=== PATIENT | female | born 1995 | race Caucasian/White ===

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

== ENCOUNTER 2019-08-22 20:05 | Emergency (ER) | payer BC, OTHER ==
--- NOTE | 2019-08-22 20:08 | ERPHSYRPT ---
- History of Present Illness Time Seen by Provider: 08/22/19 20:08 Historian: patient Exam Limitations: no limitations Physician History: This is a 24-year-old overweight white female with history of hypertension and elevated cholesterol who presents with a 2-day history of worsening dizziness and associated vomiting. Patient symptoms began prior to this evaluation. The dizziness was intermittent. However, this morning the patient had the dizziness with sinus pressure as well as 3 episodes of vomiting. Denies chest pain, denies shortness of breath, denies abdominal pain. She has some pressure in both of her ears but is mild. Patient states she is never had this before. Timing/Duration: day(s) (2) Activities at Onset: none Quality: pressure Abdominal Pain Onset Location: other (Nominal pain) Pain Radiation: no radiation Severity of Pain-Max: none Severity of Pain-Current: none Associated Symptoms: nausea, vomiting Previous symptoms: no prior history Allergies/Adverse Reactions: amoxicillin [Amoxicillin] Allergy (Verified 08/22/19 20:46) poison emily extract [Poison Emily Extract] Allergy (Verified 08/22/19 20:46) benazepril Adverse Reaction (Verified 08/22/19 20:46) Home Medications: Amlodipine Besylate 5 mg PO DAILY 08/22/19 [History] Atorvastatin Calcium [Lipitor] 100 mg PO DAILY 08/22/19 [History] Fenofibrate 160 mg PO DAILY 08/22/19 [History] Semaglutide [Ozempic] 1 ml SQ WEEKLY 08/22/19 [History] Hx Tetanus, Diphtheria Vaccination/Date Given: Yes Hx Influenza Vaccination/Date Given: No Hx Pneumococcal Vaccination/Date Given: No Travel Risk - International Travel Have you traveled outside of the country in past 3 weeks: No Have you or anyone close to you been diagnosed with or: No Do your reside in a community with a known COVID-19 case?: Yes If Yes where:: [facility] - Coronavirus Screening Has patient experienced Coronavirus symptoms: No - Review of Systems Constitutional: No Symptoms Eyes: No Symptoms Ears, Nose, & Throat: Ear Pain (Mild bilateral), Other (Frontal sinus pressure) Respiratory: No Symptoms Cardiac: No Symptoms Abdominal/Gastrointestinal: No Symptoms Genitourinary Symptoms: No Symptoms Musculoskeletal: No Symptoms Skin: No Symptoms Neurological: No Symptoms Psychological: No Symptoms Endocrine: No Symptoms Hematologic/Lymphatic: No Symptoms Immunological/Allergic: No Symptoms All Other Systems: Reviewed and Negative - Past Medical History Pertinent Past Medical History: Yes Neurological History: No Pertinent History ENT History: No Pertinent History Cardiac History: Hypertension Respiratory History: No Pertinent History Endocrine Medical History: Hyperthyroidism Musculoskeletal History: No Pertinent History GI Medical History: No Pertinent History History: No Pertinent History Psycho-Social History: Panic Disorder Female Reproductive Disorders: No Pertinent History - Past Surgical History Past Surgical History: No Neuro Surgical History: No Pertinent History Cardiac: No Pertinent History Respiratory: No Pertinent History Gastrointestinal: No Pertinent History Genitourinary: No Pertinent History Musculoskeletal: No Pertinent History Female Surgical History: No Pertinent History - Social History Smoking Status: Never smoker Exposure to second hand smoke: No Alcohol Use: None Drug Use: none Patient Lives Alone: No Significant Family History: no pertinent family hx, heart disease, hypertension - Nursing Vital Signs Nursing Vital Signs: Initial Vital Signs Temperature 98.9 F 08/22/19 20:47 Pulse Rate 114 H 08/22/19 20:47 Respiratory Rate 14 08/22/19 20:47 Blood Pressure 155/92 08/22/19 20:47 O2 Sat by Pulse Oximetry 97 08/22/19 20:47 Pain Scale Pain Intensity 4 - Physical Exam General Appearance: mild distress, alert, anxiety, obese Eye Exam: PERRL/EOMI, eyes nml inspection Ears, Nose, Throat Exam: normal ENT inspection, TMs normal, pharynx normal, moist mucous membranes Neck Exam: normal inspection, non-tender, supple, full range of motion Respiratory Exam: normal breath sounds, lungs clear, airway intact, No chest tenderness, No respiratory distress Cardiovascular Exam: regular rate/rhythm, normal heart sounds, normal peripheral pulses Gastrointestinal/Abdomen Exam: soft, normal bowel sounds, No tenderness Pelvic Exam: not done Rectal Exam: not done Back Exam: normal inspection, normal range of motion, No CVA tenderness, No vertebral tenderness Extremity Exam: normal inspection, normal range of motion, pelvis stable Neurologic Exam: alert, oriented x 3, cooperative, company doctor II-XII nml as tested, normal mood/affect, nml cerebellar function, nml station & gait, sensation nml Skin Exam: normal color, warm, dry Lymphatic Exam: No adenopathy SpO2 Interpretation: normal O2 Delivery: Room Air - Course Nursing assessment & vital signs reviewed: Yes EKG Interpreted by Me: RATE, Sinus Rhythm (83), NORMAL AXIS, NORMAL INTERVALS, NORMAL QRS, Other (No comparison EKG) Ordered Tests: Active Orders 24 hr Category Date Time Status Pen Ruler Operator STAT Care 08/22/19 21:27 Active EKG-ER Only STAT Care 08/22/19 21:26 Active IV Insertion STAT Care 08/22/19 21:26 Active Isolation, Initiate & Maintain Q4H Care 08/22/19 21:02 Active HEAD WITHOUT CONTRAST [CT] Stat Exams 08/22/19 21:27 Ordered CBC W DIFF Stat Lab 08/22/19 21:50 Completed CMP Stat Lab 08/22/19 21:50 Completed CULTURE,URINE Stat Lab 08/22/19 21:25 Received HCG,QUALITATIVE URINE Stat Lab 08/22/19 21:25 Completed UA W/RFX UR CULTURE Stat Lab 08/22/19 21:25 Completed Medication Summary Discontinued Medications Generic Name Dose Route Start Last Admin Trade Name Freq PRN Reason Stop Dose Admin Sodium Chloride 1,000 mls @ 999 mls/hr 08/22/19 21:26 08/22/19 23:25 Sodium Chloride 0.9% 1000 Ml IV 08/22/19 22:26 Infused .Q1H1M STA Infusion Ceftriaxone Sodium/Dextrose 1 g in 50 mls @ 100 mls/hr 08/22/19 21:55 23:25 Rocephin 1 Gm-D5w 50 Ml Bag IV 08/22/19 22:24 Infused STAT STA Infusion Sodium Chloride Confirm 08/22/19 22:10 Sodium Chloride 0.9% 1000 Ml Administered 08/22/19 22:11 Dose 1,000 mls @ ud .ROUTE .STK-MED ONE Ceftriaxone Sodium/Dextrose Confirm 08/22/19 22:10 Rocephin 1 Gm-D5w 50 Ml Bag Administered 08/22/19 22:11 Dose 1 g in 50 mls @ ud IV .STK-MED ONE Ondansetron HCl 4 mg 08/22/19 21:26 08/22/19 22:12 Zofran 4 Mg/2 Ml Vial IV 08/22/19 21:27 4 mg STAT ONE Administration Ondansetron HCl Confirm 08/22/19 22:10 Zofran 4 Mg/2 Ml Vial Administered 08/22/19 22:11 Dose 4 mg .ROUTE .STK-MED ONE Lab/Rad Data: Laboratory Result Diagrams 08/22/19 21:50 08/22/19 21:50 Laboratory Results 08/22/19 08/22/19 08/22/19 Range/Units 21:50 21:50 21:25 WBC 11.7 H (4.0-10.5) K/mm3 RBC 4.57 (4.1-5.4) M/mm3 Hgb 13.3 (12.0-16.0) gm/dl Hct 39.9 (35-47) % MCV 87.3 (78-100) fl MCH 29.1 (26-32) pg MCHC 33.3 (32-36) g/dl RDW 12.8 (11.5-14.0) % Plt Count 307 (150-450) K/mm3 MPV 10.6 (7.5-11.0) fl Gran % 70.2 H (36.0-66.0) % Eos # (Auto) 0.05 (0-0.5) Absolute Lymphs (auto) 2.59 (1.0-4.6) Absolute Monos (auto) 0.83 (0.0-1.3) Lymphocytes % 22.1 L (24.0-44.0) % Monocytes % 7.1 (0.0-12.0) % Eosinophils % 0.4 (0.00-5.0) % Basophils % 0.2 (0.0-0.4) % Absolute Granulocytes 8.21 H (1.4-6.9) Basophils # 0.02 (0-0.4) Sodium 143 (137-145) mmol/L Potassium 3.6 (3.5-5.1) mmol/L Chloride 106 (98-107) mmol/L Carbon Dioxide 25 (22-30) mmol/L Anion Gap 15.3 H (5-15) MEQ/L BUN 16 (7-17) mg/dL Creatinine 0.98 (0.52-1.04) mg/dL Estimated GFR > 60.0 ML/MIN Glucose 202 H (74-106) mg/dL Calcium 9.6 (8.4-10.2) mg/dL Total Bilirubin 0.40 (0.2-1.3) mg/dL AST 22 (14-36) U/L ALT 20 (0-35) U/L Alkaline Phosphatase 59 (38-126) U/L Serum Total Protein 8.2 (6.3-8.2) g/dL Albumin 4.3 (3.5-5.0) g/dL Urine Color (YELLOW) Urine Appearance (CLEAR) Urine pH (5-6) Ur Specific [place] (1.005-1.025) Urine Protein (Negative) Urine Ketones (NEGATIVE) Urine Blood (0-5) Manuel/ul Urine Nitrite (NEGATIVE) Urine Bilirubin (NEGATIVE) Urine Urobilinogen (0-1) mg/dL Ur Leukocyte Esterase (NEGATIVE) Urine WBC (Auto) (0-5) /HPF Urine RBC (Auto) (0-2) /HPF U Hyaline Cast (Auto) (0-2) /LPF U Epithel Cells (Auto) (FEW) /HPF Urine Bacteria (Auto) (NEGATIVE) /HPF Urine Mucus (Auto) (NEGATIVE) /HPF Urine Yeast (Budding) (NEGATIVE) /HPF Urine Culture Reflexed (NO) Urine Glucose (NEGATIVE) mg/dL Urine HCG, Qual NEGATIVE (Negative) 08/22/19 Range/Units 21:25 WBC (4.0-10.5) K/mm3 RBC (4.1-5.4) M/mm3 Hgb (12.0-16.0) gm/dl Hct (35-47) % MCV (78-100) fl MCH (26-32) pg MCHC (32-36) g/dl RDW (11.5-14.0) % Plt Count (150-450) K/mm3 MPV (7.5-11.0) fl Gran % (36.0-66.0) % Eos # (Auto) (0-0.5) Absolute Lymphs (auto) (1.0-4.6) Absolute Monos (auto) (0.0-1.3) Lymphocytes % (24.0-44.0) % Monocytes % (0.0-12.0) % Eosinophils % (0.00-5.0) % Basophils % (0.0-0.4) % Absolute Granulocytes (1.4-6.9) Basophils # (0-0.4) Sodium (137-145) mmol/L Potassium (3.5-5.1) mmol/L Chloride (98-107) mmol/L Carbon Dioxide (22-30) mmol/L Anion Gap (5-15) MEQ/L BUN (7-17) mg/dL Creatinine (0.52-1.04) mg/dL Estimated GFR ML/MIN Glucose (74-106) mg/dL Calcium (8.4-10.2) mg/dL Total Bilirubin (0.2-1.3) mg/dL AST (14-36) U/L ALT (0-35) U/L Alkaline Phosphatase (38-126) U/L Serum Total Protein (6.3-8.2) g/dL Albumin (3.5-5.0) g/dL Urine Color ANURADHA (YELLOW) Urine Appearance TURBID (CLEAR) Urine pH 5.0 (5-6) Ur Specific [place] 1.032 (1.005-1.025) Urine Protein 100 (Negative) Urine Ketones TRACE (NEGATIVE) Urine Blood NEGATIVE (0-5) Manuel/ul Urine Nitrite NEGATIVE (NEGATIVE) Urine Bilirubin NEGATIVE (NEGATIVE) Urine Urobilinogen 2 (0-1) mg/dL Ur Leukocyte Esterase NEGATIVE (NEGATIVE) Urine WBC (Auto) 26-50 (0-5) /HPF Urine RBC (Auto) NONE (0-2) /HPF U Hyaline Cast (Auto) 6-10 (0-2) /LPF U Epithel Cells (Auto) FEW (FEW) /HPF Urine Bacteria (Auto) MODERATE (NEGATIVE) /HPF Urine Mucus (Auto) MANY (NEGATIVE) /HPF Urine Yeast (Budding) Rare (NEGATIVE) /HPF Urine Culture Reflexed YES (NO) Urine Glucose 50 (NEGATIVE) mg/dL Urine HCG, Qual (Negative) - Progress Progress: improved Progress Note: 08/22/19 22:46 CAT scan of the head shows an area of low density in the right cerebellum. It appears somewhat wedge-shaped and may be due to subacute infarct. Radiologist cannot entirely exclude an underlying mass. No hemorrhage is seen an MRI may be helpful for further characterization. Medical decision making: The CAT scan of the head findings were discussed in detail with the patient. 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 Both of which gave her vertigo type symptoms and headache pain. I reviewed the CAT scan findings with the radiologist Dr. Alonzo. She feels that this is a subacute infarct that is approximately 2 to 3 days old. This fits within the timeframe of the patient's onset of symptoms. I recommended that the patient be transferred to a facility where there is a neurologist and further inpatient evaluation and examinations can be performed. The patient lives in [facility] and works at [employer]. I spoke with Dr. Breaux, the neurologist [place] [facility] He agrees that the patient needs to be transferred there and placed in the inpatient setting to have an MRI performed to monitor for progression of process, hydrocephalus and symptoms. That facility requires discussion with hospitalist and Dr. Breaux will be consulted on the case. 08/22/19 23:26 I spoke with MUD ANALYSIS OPERATOR Juanis Galarza who is intake for hospitalist Dr. Bang at [facility] in [facility]. I reviewed the patient history, condition , laboratory data, EKG and CAT scan results with her. She accepts this patient on behalf of Dr. Bang. The [facility] ambulance transport system is not available to transport this patient to [facility]. We called [facility] and they are not available to transport this patient until 9 AM on 08/23/2019. The family is available to transport the patient via private vehicle directly from here to there tonight. I believe the patient will be safe to transport in this fashion. However, I did tell them that there is a risk associated with that and that includes worsening condition and possible . I think that risk is low but not 0. Patient has been stable during her hospitalization here in the emergency department. We will make a few more phone calls and try to obtain monitored travel. If not, the family states that they will sign a AGAINST MEDICAL ADVICE form then transport her directly to the hospital in [facility] Counseled pt/family regarding: lab results, diagnosis, rad results - Departure Departure Disposition: Transfer, AMA Clinical Impression: CVA (cerebral vascular accident), HTN (hypertension), UTI (urinary tract infection) Condition: Stable Critical Care Time: Yes Critical Care Time(excluding separately billable procedures): Critical 30-74 mins Referrals: DOCTOR,NO FAMILY [Primary Care Provider] -
[2019-08-22 21:38] LABS: Appearance TURBID (CLEAR); Bacteria MODERATE /HPF (NEGATIVE); Bilirubin NEGATIVE (NEGATIVE); Blood NEGATIVE Ery/ul (0-5); Epithelial Cells FEW /HPF (FEW); Glucose 50 mg/dL (NEGATIVE); Ketones TRACE (NEGATIVE); Leukocyte Esterase NEGATIVE (NEGATIVE); Mucus MANY /HPF (NEGATIVE); Nitrite NEGATIVE (NEGATIVE); Protein,Urine Dip 100 (Negative); Specific Gravity 1.032 (1.005-1.025); Urobilinogen 2 mg/dL (0-1); WBC 26-50 /HPF (0-5)
[2019-08-22 21:39] LABS: Budding Yeast Rare /HPF (NEGATIVE)
[2019-08-22 21:57] LABS: Absolute Neutrophil Ct (ANC) 8.21 (1.4-6.9); BASOPHIL % 0.2 % (0.0-0.4); Basophil (Absolute #) 0.02 (0-0.4); Eosinophil % 0.4 % (0.00-5.0); Eosinophil (Absolute #) 0.05 (0-0.5); Hematocrit 39.9 % (35-47); Hemoglobin 13.3 gm/dl (12.0-16.0); Lymphocyte (Absolute #) 2.59 (1.0-4.6); Lymphocytes % 22.1 % (24.0-44.0); Mean Cell Volume 87.3 fl (78-100); Mean Corpuscular Hemoglobin 29.1 pg (26-32); Mean Corpuscular Hgb Concent. 33.3 g/dl (32-36); Mean Platelet Volume 10.6 fl (7.5-11.0); Monocyte (Absolute #) 0.83 (0.0-1.3); Monocytes % 7.1 % (0.0-12.0); Neutrophil % 70.2 % (36.0-66.0); Platelet Count 307 K/mm3 (150-450); Red Blood Count 4.57 M/mm3 (4.1-5.4); Red Cell Distribution Width 12.8 % (11.5-14.0); White Blood Count 11.7 K/mm3 (4.0-10.5)
[2019-08-22 22:09] LABS: ALBUMIN 4.3 g/dL (3.5-5.0); ALKALINE PHOSPHATASE 59 U/L (38-126); ANION GAP 15.3 MEQ/L (5-15); BLOOD UREA NITROGEN 16 mg/dL (7-17); CHLORIDE 106 mmol/L (98-107); Calcium 9.6 mg/dL (8.4-10.2); Carbon Dioxide 25 mmol/L (22-30); Creatinine 1 0.98 mg/dL (0.52-1.04); Glucose 202 mg/dL (74-106); Potassium 3.6 mmol/L (3.5-5.1); SGOT/AST 22 U/L (14-36); SGPT/ALT 20 U/L (0-35); SODIUM 143 mmol/L (137-145); Total Protein 8.2 g/dL (6.3-8.2)
[2019-08-22] MEDS ORDERED: ROCEPHIN 1 Gm-D5w 50 ml Bag** 1 G/50 ML IVPB IV ONE (22:10)
[2019-08-22] MEDS ORDERED: Zofran 4 MG/2 ML VIAL ONE (22:10)
[2019-08-22] MEDS ORDERED: Sodium Chloride 0.9% 1000 ML 1,000 ML ONE (22:10)
[2019-08-22] MEDS: Sodium Chloride 0.9% 1000 ML 1,000 ML IV STA (22:11)
[2019-08-22] MEDS: Zofran 4 MG/2 ML VIAL IV ONE (22:12)
[2019-08-22] MEDS: ROCEPHIN 1 Gm-D5w 50 ml Bag** 1 G/50 ML IVPB IV STA (22:16)
[2019-08-23] MEDS ORDERED: Zofran 4 MG/2 ML VIAL ONE (00:45)
[2019-08-23] MEDS ORDERED: MORPHINE SULFATE 2 MG INJ ONE (00:45)
[2019-08-23] MEDS ORDERED: NORVASC 5 MG ONE (00:45)
[2019-08-23] MEDS: MORPHINE SULFATE 2 MG INJ IV ONE (00:46)
[2019-08-23] MEDS: Zofran 4 MG/2 ML VIAL IV ONE (00:46)
[2019-08-23] MEDS: NORVASC 5 MG PO ONE (00:47)
[2019-08-23 02:40] VITALS: BP 161/109; PULSE 89; O2SAT 97
--- NOTE | 2019-08-23 07:46 | XRAY ---
Indication: Headache, emesis, and dizziness. Multiple contiguous axial images obtained through the head without contrast. Comparison: None Right cerebellum demonstrates small focus subcortical hypoattenuation without mass effect, possible evolving ischemia in the right clinical setting. No acute intracranial hemorrhage, abnormal extra-axial fluid collection, or mass effect. Fourth ventricle is midline without hydrocephalus. Bony calvarium intact. Visualized paranasal sinuses and mastoid air cells are clear. Impression: Right cerebellum subcortical hypoattenuation. Rule out ischemia. MRI may yield further information. Comment: Preliminary interpretation was made by [facility]. No critical discrepancy.
== END 2019-08-23 02:00 | disposition short-term general hospital (02) ==
LOC: ED 20:05
DX: I62.9 Nontraumatic intracranial hemorrhage, unspecified (principal); I10 Essential (primary) hypertension; N39.0 Urinary tract infection, site not specified; E78.00 Pure hypercholesterolemia, unspecified; E05.90 Thyrotoxicosis, unspecified without thyrotoxic crisis or storm; Z79.899 Other long term (current) drug therapy
CPT/HCPCS: 36000; 36415; 70450; 80053; 81001; 84703; 85025; 87086; 93005; 93041; 96360; 96365; 96374; 96375; 96376; 99285; 99291; J0696; J2270; J2405; A9270-GY